=== PATIENT | female | born 1940 | race Caucasian/White ===

== ENCOUNTER 2022-11-01 16:31 | Inpatient (IN) | payer MEDICARE, SELFPAY ==
[2022-11-01 17:00] VITALS: O2SAT 96
[2022-11-01 17:01] VITALS: BP 147/98; PULSE 69; RESP 16; TEMP 36.2; O2SAT 96; BMI 20.2
[2022-11-01 17:42] VITALS: BP 147/98; PULSE 69; RESP 16; TEMP 36.2; O2SAT 96; BMI 20.2
--- NOTE | 2022-11-01 17:42 | PC.NURSE ---
Patient arrived on unit via stretcher transported by EMS from [facility] in [place]. Report had been called at 1150 and bond underwriter received report from GILLIAN Choudhury. Patient required 3 assist from stretcher to bed. Patient and family educated on use of call light, bed and television controls, Rapid response, isolation practices, visiting hours, patient safety and hospital environment. Patient and family voiced understanding.
[2022-11-01] MEDS: DOCUSATE SODIUM 100 MG CAPSULE PO (18:15)
[2022-11-01] MEDS: GABAPENTIN 300 MG CAPSULE PO (18:15)
[2022-11-01 18:30] VITALS: PULSE 67; O2SAT 94
[2022-11-01 20:00] VITALS: PULSE 71; RESP 16; O2SAT 94
[2022-11-01] MEDS: MIRTAZAPINE 7.5 MG TABLET PO (20:23)
[2022-11-01 20:24] VITALS: PULSE 71
[2022-11-01] MEDS: carvediloL 6.25 MG TABLET PO (20:24)
[2022-11-01] MEDS: ROSUVASTATIN 10 MG TABLET 40 MG PO (20:24)
[2022-11-01] MEDS: traZODone HCL 50 MG TABLET 100 MG PO (20:25)
[2022-11-02] VITALS (7 sets, daily range): BP systolic 117–133; BP diastolic 51–79; PULSE 69–73; RESP 16; TEMP 36.6–36.8; O2SAT 91–98
[2022-11-02 05:01] LABS: Basophils Absolute Auto 0.04 K/mm3 (0.00-0.10); Basophils Percent Auto 0.4 % (0.0-1.0); Eosinophils Absolute Auto 0.05 K/mm3 (0.02-0.50); Eosinophils Percent Auto 0.6 % (1.0-6.0); Hematocrit 32.2 % (35.0-42.0); Hemoglobin 9.8 g/dL (11.7-13.8); Immature Granulocyte Absolute 0.02 K/mm3 (0.00-0.00); Immature Granulocyte Percent A 0.2 % (0.0-0.0); Lymphocytes Absolute Auto 1.67 K/mm3 (1.10-4.50); Lymphocytes Percent Auto 18.6 % (18.0-42.0); Mean Corpuscular HGB Conc 30.4 g/dL (32.0-36.0); Mean Corpuscular Hemoglobin 29.9 pg (27.0-31.0); Mean Corpuscular Volume 98.2 fL (78.0-102.0); Mean Platelet Volume 9.6 fl (9.2-11.8); Monocytes Absolute Auto 0.92 K/mm3 (0.10-0.90); Monocytes Percent Auto 10.2 % (2.0-11.0); Neutrophils Absolute Auto 6.3 K/mm3 (1.7-7.2); Platelet Count Result 331 K/mm3 (150-420); Red Blood Count 3.28 M/mm3 (4.20-5.40); Red Cell Distribution Width 13.8 % (11.6-14.4)
[2022-11-02 05:19] LABS: Alanine Aminotransferase 29 U/L (14-59); Albumin Level 1.9 g/dL (3.4-5.0); Alkaline Phosphatase 81 U/L (46-116); Anion Gap 0 mmol/L (8-16); Aspartate Amino Transferase 20 U/L (15-37); Bilirubin,Total 0.3 mg/dL (0.00-1.00); Blood Urea Nitrogen 19 mg/dL (7-18); Calcium 8.6 mg/dL (8.5-10.1); Carbon Dioxide 43 mmol/L (21-32); Chloride 104 mmol/L (98-108); Estimated CRCL calculation 31 ml/min; Estimated Glomerular Filt Rate 48; Glucose 103 mg/dL (70-99); Magnesium 1.9 mg/dL (1.8-2.4); Osmolality Calculated 306 mOsm/kg (285-295); Potassium 3.7 mmol/L (3.5-5.1); Sodium 147 mmol/L (136-145); Total Protein 5.2 g/dL (6.4-8.2)
[2022-11-02 05:20] LABS: Partial Thromboplastin Time 27.1 SEC (23.90-30.70)
[2022-11-02] MEDS: ACIDOPHILUS/BULGARICUS CHEWABLE TABLET 1 TABLET PO (09:00)
[2022-11-02] MEDS: DEXAMETHASONE 2 MG TABLET 6 MG PO (09:01)
[2022-11-02] MEDS: GABAPENTIN 300 MG CAPSULE PO ×3 (09:01→17:00)
[2022-11-02] MEDS: THERAPEUTIC MULTIVITAMINS/MINERALS TAB (*BKC) 1 TABLET PO (09:02)
[2022-11-02] MEDS: FAMOTIDINE 20 MG TABLET 40 MG PO (09:03)
[2022-11-02] MEDS: PANTOPRAZOLE 40 MG TABLET PO (09:03)
[2022-11-02] MEDS: CALCIUM CARBONATE (OSCAL) 500 MG TABLET PO (09:03)
[2022-11-02] MEDS: SERTRALINE HCL 50 MG TABLET PO (09:04)
[2022-11-02] MEDS: carvediloL 6.25 MG TABLET PO ×2 (09:05→20:30)
[2022-11-02] MEDS: CLOPIDOGREL BISULFATE 75 MG TABLET PO (09:05)
[2022-11-02] MEDS: LORATADINE 10 MG TABLET PO (09:06)
--- NOTE | 2022-11-02 10:41 | PM.IMHP ---
H&P: HPI History of Present Illness Date/Time: 11/02/22 10:41 Chief Complaint: Weakness, fall, REhab, AMS Narrative: Gianfranco Barraza is a 2-year-old female with known coronary artery disease status post CABG 1988, with hypertension, breast cancer, dysphagia with need for esophageal dilation [id number] in. Patient had a non-STEMI was admitted to [facility] patient was positive for COVID this year and October. Patient is confusion has continued to improve. Patient is currently being admitted into swing so she is able to improve and get stronger with physical therapy. Patient will be seen by therapy and is medically stable to particapate. Review of Systems Review of Systems: weakness, Post Covid, Post [facility] All systems reviewed & are unremarkable except as noted in HPI and below PMFSH Past Medical History Medical History (Updated 11/12/22 @ 06:16 by Suman Montiel NP) Abdominal pain Bloating COPD (chronic obstructive pulmonary disease) Decreased appetite Dysphagia Epigastric pain GERD (gastroesophageal reflux disease) Irritable bowel syndrome with constipation PVD (peripheral vascular disease) Social History Social History (System 05/11/19 @ 14:18 by Izabella Vaughan) Smoking packs per day: 0.25 Smoking cigarettes per day: 5.0 Years smoked: 30 Smoking pack-years: 7.50 Smoking status: Former smoker Tobacco type: cigarettes Second hand tobacco smoke exposure: Yes Smoking end date: 11/01/88 Alcohol intake: former Substance use: never Substance use type: does not use Lack of Transportation: No Lack of Food: Sometimes True Current Housing: I Have Housing Concerned About Future Housing: No Difficulty Paying Gas/Electric Bills: No Difficulty Paying for Meds: No Currently Unemployed: No Education: Trade/Vocational Certificate Difficulty w/ Childcare or Family Care: No Spiritual care concerns: No Meds Home Medications and Allergies Home Medications Medication Instructions Recorded Confirmed Type Lactobacillus acidophilus 10 mg PO DAILY 10/05/22 11/01/22 History (Acidophilus capsule) calcium carbonate 600 mg calcium 600 mg PO DAILY 10/05/22 11/01/22 History (1,500 mg) tablet (Calcium) clopidogrel 75 mg tablet 75 mg PO DAILY 10/05/22 11/01/22 History gabapentin 300 mg capsule 300 mg PO TID 10/05/22 11/01/22 History trazodone 100 mg tablet 100 mg PO QHS 10/05/22 11/01/22 History albuterol sulfate 90 mcg/actuation 2 puff inhalation QID PRN 11/01/22 11/01/22 History aerosol inhaler (Proventil HFA) Shortness Of Breath Or Wheezing carvedilol 6.25 mg tablet 6.25 mg PO Q12H 11/01/22 11/01/22 History docusate sodium 100 mg capsule 100 mg PO BID 11/01/22 11/01/22 History famotidine 40 mg tablet 40 mg PO DAILY 11/01/22 11/01/22 History fluticasone fur. 200 mcg-umeclid 1 inh inhalation DAILY 11/01/22 11/01/22 History 62.5 mcg-vilant 25 mcg inhalat.powder (Trelegy Ellipta) loratadine 10 mg capsule 10 mg PO DAILY 11/01/22 11/01/22 History melatonin 5 mg tablet 15 mg PO HS PRN Sleep 11/01/22 11/01/22 History mirtazapine 15 mg tablet (Remeron) 7.5 mg PO HS 11/01/22 11/01/22 History multivit with minerals-iron 18 1 tablet PO DAILY 11/01/22 11/01/22 History mg-folic ac 400 mcg-vit K 25 mcg tablet (Adults Multivitamin) nitroglycerin 0.4 mg sublingual 0.4 mg sublingual Q5-15M PRN Angina 11/01/22 11/01/22 History tablet omeprazole 20 mg capsule,delayed 20 mg PO DAILY 11/01/22 11/01/22 History release ondansetron 4 mg disintegrating 4 mg PO Q8H PRN Abdominal 11/01/22 11/01/22 History tablet Discomfort rosuvastatin 40 mg tablet 40 mg PO HS 11/01/22 11/01/22 History sertraline 50 mg tablet 50 mg PO DAILY 11/01/22 11/01/22 History dexamethasone 2 mg tablet 6 mg PO DAILY@0800 #1 tablet 11/05/22 Rx Allergies Allergy/AdvReac Type Severity Reaction Status Date / Time NSAIDS (Non-Steroidal Allergy Unknown Unknown Verified 10/05/22 13:16 Anti-Inflamma Danae
--- NOTE | 2022-11-02 12:42 | PC.NURSE ---
Decreased patient's O2 to 1L via nasal cannula. SPO2 holding at 95% Will continue to monitor.
--- NOTE | 2022-11-02 13:24 | PC.NURSE ---
Patient's SPO2 at 93% on 1 L.
[2022-11-02] MEDS: DOCUSATE SODIUM 100 MG CAPSULE PO (17:00)
--- NOTE | 2022-11-02 17:12 | PC.NURSE ---
Patient stated that prior to hospitalization, patient only wore depends at home when she had loose stools. Community Services Coordinator encouraged patient to call for bedside commode when she feels the urge to use the bathroom and patient has been continent x 4. SPO2 at 91% on 1 L O2 via n/c. Patient ambulates 1 assist walker to bedside commode, chair and back to bed with some noted weakness.
[2022-11-02] MEDS: ROSUVASTATIN 10 MG TABLET 40 MG PO (20:29)
[2022-11-02] MEDS: traZODone HCL 50 MG TABLET 100 MG PO (20:30)
[2022-11-02] MEDS: MIRTAZAPINE 7.5 MG TABLET PO (20:30)
[2022-11-03] VITALS (7 sets, daily range): BP systolic 108–114; BP diastolic 50–64; PULSE 70–75; RESP 14–18; TEMP 36.1–36.8; O2SAT 93–94
--- NOTE | 2022-11-03 02:59 | PC.NURSE ---
On 11/03/22, the INTERPRETER TRANSLATOR, [Natalie Dior ], provided care and completed [facility] documentation on this patient. I have reviewed the INTERPRETER TRANSLATOR's documentation and agree with the findings.
[2022-11-03] MEDS: DEXAMETHASONE 2 MG TABLET 6 MG PO (08:25)
[2022-11-03] MEDS: ACIDOPHILUS/BULGARICUS CHEWABLE TABLET 1 TABLET PO (09:24)
[2022-11-03] MEDS: CALCIUM CARBONATE (OSCAL) 500 MG TABLET PO (09:24)
[2022-11-03] MEDS: SERTRALINE HCL 50 MG TABLET PO (09:25)
[2022-11-03] MEDS: GABAPENTIN 300 MG CAPSULE PO ×3 (09:25→17:13)
[2022-11-03] MEDS: LORATADINE 10 MG TABLET PO (09:25)
[2022-11-03] MEDS: PANTOPRAZOLE 40 MG TABLET PO (09:25)
[2022-11-03] MEDS: FAMOTIDINE 20 MG TABLET 40 MG PO (09:25)
[2022-11-03] MEDS: carvediloL 6.25 MG TABLET PO ×2 (09:26→20:22)
[2022-11-03] MEDS: THERAPEUTIC MULTIVITAMINS/MINERALS TAB (*BKC) 1 TABLET PO (09:26)
[2022-11-03] MEDS: DOCUSATE SODIUM 100 MG CAPSULE PO ×2 (09:27→17:13)
[2022-11-03] MEDS: CLOPIDOGREL BISULFATE 75 MG TABLET PO (09:27)
--- NOTE | 2022-11-03 10:46 | PHAR ---
verified pt.'s home medication Trelegy Ellipta Inhaler 200/62.5/25mcg, 1 puff daily.
[2022-11-03] MEDS: ACETAMINOPHEN 500 MG TABLET 1000 MG PO (11:28)
[2022-11-03] MEDS: ROSUVASTATIN 10 MG TABLET 40 MG PO (20:22)
[2022-11-03] MEDS: traZODone HCL 50 MG TABLET 100 MG PO (20:22)
[2022-11-03] MEDS: MIRTAZAPINE 7.5 MG TABLET PO (20:23)
[2022-11-04] VITALS (7 sets, daily range): BP systolic 126–143; BP diastolic 51–69; PULSE 64–77; RESP 14–16; TEMP 36.2–37.2; O2SAT 92–95
--- NOTE | 2022-11-04 04:33 | PC.NURSE ---
On 11/04/22, the TECHNICAL BUYER, [ Natalie Dior], provided care and completed [facility] documentation on this patient. I have reviewed the TECHNICAL BUYER's documentation and agree with the findings.
[2022-11-04] MEDS: DEXAMETHASONE 2 MG TABLET 6 MG PO (08:40)
[2022-11-04] MEDS: PANTOPRAZOLE 40 MG TABLET PO (09:14)
[2022-11-04] MEDS: FAMOTIDINE 20 MG TABLET 40 MG PO (09:14)
[2022-11-04] MEDS: THERAPEUTIC MULTIVITAMINS/MINERALS TAB (*BKC) 1 TABLET PO (09:14)
[2022-11-04] MEDS: SERTRALINE HCL 50 MG TABLET PO (09:15)
[2022-11-04] MEDS: CALCIUM CARBONATE (OSCAL) 500 MG TABLET PO (09:15)
[2022-11-04] MEDS: GABAPENTIN 300 MG CAPSULE PO ×3 (09:15→17:15)
[2022-11-04] MEDS: DOCUSATE SODIUM 100 MG CAPSULE PO ×2 (09:15→17:15)
[2022-11-04] MEDS: CLOPIDOGREL BISULFATE 75 MG TABLET PO (09:16)
[2022-11-04] MEDS: carvediloL 6.25 MG TABLET PO ×2 (09:16→20:19)
[2022-11-04] MEDS: LORATADINE 10 MG TABLET PO (09:16)
[2022-11-04] MEDS: ACIDOPHILUS/BULGARICUS CHEWABLE TABLET 1 TABLET PO (10:01)
[2022-11-04] MEDS: ENOXAPARIN 40 MG/0.4 ML SYRINGE SUB-Q (12:52)
[2022-11-04] MEDS: ROSUVASTATIN 10 MG TABLET 40 MG PO (20:19)
[2022-11-04] MEDS: MIRTAZAPINE 7.5 MG TABLET PO (20:19)
[2022-11-04] MEDS: traZODone HCL 50 MG TABLET 100 MG PO (20:19)
[2022-11-04] MEDS: ACETAMINOPHEN 500 MG TABLET 1000 MG PO (20:19)
[2022-11-05 07:33] LABS: Basophils Absolute Auto 0.01 K/mm3 (0.00-0.10); Basophils Percent Auto 0.1 % (0.0-1.0); Hematocrit 30.3 % (35.0-42.0); Hemoglobin 9.6 g/dL (11.7-13.8); Immature Granulocyte Absolute 0.03 K/mm3 (0.00-0.00); Immature Granulocyte Percent A 0.3 % (0.0-0.0); Lymphocytes Absolute Auto 1.73 K/mm3 (1.10-4.50); Lymphocytes Percent Auto 19.1 % (18.0-42.0); Mean Corpuscular HGB Conc 31.7 g/dL (32.0-36.0); Mean Corpuscular Hemoglobin 29.3 pg (27.0-31.0); Mean Corpuscular Volume 92.4 fL (78.0-102.0); Monocytes Absolute Auto 0.81 K/mm3 (0.10-0.90); Monocytes Percent Auto 8.9 % (2.0-11.0); Neutrophils Absolute Auto 6.5 K/mm3 (1.7-7.2); Neutrophils Percent Auto 71.6 % (50.0-70.0); Platelet Count Result 313 K/mm3 (150-420); Red Blood Count 3.28 M/mm3 (4.20-5.40); Red Cell Distribution Width 13.9 % (11.6-14.4); White Blood Count 9.1 K/mm3 (4.8-10.8)
[2022-11-05 07:47] LABS: Anion Gap 3 mmol/L (8-16); Blood Urea Nitrogen 22 mg/dL (7-18); Calcium 8.8 mg/dL (8.5-10.1); Carbon Dioxide 37 mmol/L (21-32); Chloride 103 mmol/L (98-108); Estimated CRCL calculation 31 ml/min; Estimated Glomerular Filt Rate 48; Glucose 93 mg/dL (70-99); Iron 75 ug/dL (50-170); Osmolality Calculated 299 mOsm/kg (285-295); Percent Iron Saturation 33 % (12-57); Potassium 3.8 mmol/L (3.5-5.1); Sodium 143 mmol/L (136-145)
[2022-11-05 08:00] VITALS: BP 147/64; PULSE 69; RESP 16; TEMP 36.3; O2SAT 92
[2022-11-05] MEDS: DEXAMETHASONE 2 MG TABLET 6 MG PO (08:45)
[2022-11-05] MEDS: THERAPEUTIC MULTIVITAMINS/MINERALS TAB (*BKC) 1 TABLET PO (09:22)
[2022-11-05] MEDS: ACIDOPHILUS/BULGARICUS CHEWABLE TABLET 1 TABLET PO (09:22)
[2022-11-05] MEDS: DOCUSATE SODIUM 100 MG CAPSULE PO (09:22)
[2022-11-05] MEDS: GABAPENTIN 300 MG CAPSULE PO ×2 (09:22→13:06)
[2022-11-05] MEDS: PANTOPRAZOLE 40 MG TABLET PO (09:22)
[2022-11-05 09:23] VITALS: PULSE 65
[2022-11-05] MEDS: FAMOTIDINE 20 MG TABLET 40 MG PO (09:23)
[2022-11-05] MEDS: CLOPIDOGREL BISULFATE 75 MG TABLET PO (09:23)
[2022-11-05] MEDS: CALCIUM CARBONATE (OSCAL) 500 MG TABLET PO (09:23)
[2022-11-05] MEDS: carvediloL 6.25 MG TABLET PO (09:23)
[2022-11-05] MEDS: LORATADINE 10 MG TABLET PO (09:23)
[2022-11-05] MEDS: SERTRALINE HCL 50 MG TABLET PO (09:23)
--- NOTE | 2022-11-05 12:08 | PM.DS ---
DS: Admitting Diagnosis Discharge Date Tuesday, 11/05 Admitting Diagnosis Fall, COVID DS: Discharge Diagnosis Discharge Diagnosis (1) Fall: Code(s): W19.XXXA - Unspecified fall, initial encounter Status: Acute Assessment and Plan: PT OT ordered with improvement in functioning Home health consults ordered (2) COVID: Code(s): U07.1 - COVID-19 Status: Acute (3) NSTEMI (non-ST elevated myocardial infarction): Code(s): I21.4 - Non-ST elevation (NSTEMI) myocardial infarction Status: Acute Assessment and Plan: ECHO at [facility] with preserved EF and no wall motion abnormalities Possibly type II NSTEMI from infectious state Cardiology at [facility] felt troponin elevation was non-cardiac (4) Pneumonia: Code(s): J18.9 - Pneumonia, unspecified organism Status: Acute Assessment and Plan: Treated with IV antibiotics and completed oral antibiotic course. Dexamethasone for 5 doses. Last dose is going to be 11/06. On room air now, satting appropriately DS: Summary Hospital Course Hospital Course: This is an 82 year old female with a PMH of CAD s/p CABG , HTN, breast cancer, COPD on home o2 1-2 l as needed,TIA, dysphagia with need for esophageal dilation who presented to an OSH ED after being found down at home by family. She was found to be hypoxic and confused. She required transfer to [facility] for concerns for NSTEMI given tropenemia and elevated BNP. She incidentally was also found to be COVID positive. During her stay at [facility] she was treated for pneumonia with IV antibiotics and transitioned to oral agents as well as 5 day course of dexamethasone. She was evaluated by cardiology who felt her high troponins were not cardiac related but likely reactive from infection. Her ECHO was non-concerning. She was then transfered to [facility] for Pt/Ot. 11/05: Medically clinically ready for discharge. Her labs are WNL for her chronic conditions despite a slight elevation in her Cr of 1.08. Chart review shows initial Cr of 1.69 so this is much improved. She is not requiring oxygen, denies SOB, CP, dizziness, headache, is tolerating a diet and denies GI distress such as N/V/D. She is going to d/c home today with home health care services. Status at Discharge Cognitive/behavioral status at discharge: A&Ox4, pleasant Functional status at discharge: uses cane/walker Time Spent with Patient Time attestation: Total time spent providing and/or coordinating discharge services:45 Exam Narrative: General: well appearing, well developed, thin, appears stated age. HEENT: normocephalic, atraumatic. Mucous membranes moist. EOMI, PERRLA, bilateral sclera anicteric, no conjunctival injection. Neck supple without JVD, lymphadenopathy, or bruit. Respiratory: clear to auscultation bilaterally. No rales/rhonic/wheezes. Cardiovascular: Regular rate and rhythm, normal S1-S2 upon auscultation. No murmurs, rubs, or clicks. PMI is nondisplaced, capillary re-fill less than 3 second. Abdomen: Soft, flat, no pulsatile masses, non-distended and non-tender. No rebound, no guarding. No CVA tenderness, no hepatosplenomegaly. Bowel sounds present to all four quadrants. No high pitch or tinkling sounds, resonant to percussion. Extremities: No cyanosis, clubbing, or edema present. Pulses are palpable 2/2. Active ROM to all four extremities. Neuro: Alert and orientated x 4. PERRLA. Cranial nerves 2-12 intact without focal deficit. Skin: Warm, dry, and intact, without rash, erythema, or lesion. Lines: N/a Incisions: N/a Psych: pleasant, cooperative, normal speech, normal affect, no hallucinations, no dysarthria DS: Data Data Completed and Pending Labs on day of discharge: Labs from last 24 hours 11/05/22 07:21 WBC 9.1 RBC 3.28 L Hgb 9.6 L Hct 30.3 L MCV 92.4 MCH 29.3 MCHC 31.7 L RDW 13.9 Plt Count 313 MPV 10.0 Immature Gran % (Auto) 0.3 H Neut % (Auto) 71.6 H Lymph % (A
--- NOTE | 2022-11-05 14:16 | PC.NURSE ---
Patient discharged to home. Left facility via wheelchair and gait belt. Assisted into private vehicle. Spouse present at the time.
--- NOTE | 2022-11-09 10:21 | PC.NURSE ---
Discharge call back complete, daughter report nurses have been in and all is going well, no questions regarding discharge instructions, everything understood
== END 2022-11-05 13:35 | disposition home health service (06) | DRG 947 ==
PROVIDERS: Nurse Practitioner Acute Care; Nurse Practitioner Adult Health; Admitting Provider Internal Medicine; Visit Provider Internal Medicine
DX: R53.1 Weakness (principal); I21.A1 Myocardial infarction type 2; U07.1 COVID-19; J18.9 Pneumonia, unspecified organism; I25.10 Atherosclerotic heart disease of native coronary artery without angina pectoris; I10 Essential (primary) hypertension; I73.9 Peripheral vascular disease, unspecified; J44.9 Chronic obstructive pulmonary disease, unspecified; K21.9 Gastro-esophageal reflux disease without esophagitis; K58.1 Irritable bowel syndrome with constipation; Z95.1 Presence of aortocoronary bypass graft; Z85.3 Personal history of malignant neoplasm of breast; Z87.891 Personal history of nicotine dependence; Z79.02 Long term (current) use of antithrombotics/antiplatelets
CPT/HCPCS: 36415; 80048; 80053; 83540; 83550; 83735; 85025; 85730; 97110; 97161; 97165; 97530; 97535; A9270; J1650; J8540

== ENCOUNTER 2023-04-05 01:37 | Day surgery (SDC) | payer MEDICARE, SELFPAY ==
[2023-03-22 15:45] VITALS: BMI 20.1
--- NOTE | 2023-03-22 16:34 | PC.NURSE ---
Spoke with __PT AND DAUGHTER STACI____ regarding medication __PLAVIX . Pt. verbalizes understanding that the last dose of _PLAVIX___ is to be taken on __03/31/2023____ and the Endoscopist will instruct them when to restart after the procedure.
--- NOTE | 2023-04-01 13:06 | SUR.PREOP ---
Patient called regarding upcoming procedure. Reviewed preop instructions, appointment times, and procedure prep.
[2023-04-05 11:49] VITALS: BP 151/52; PULSE 74; RESP 18; TEMP 36.9; O2SAT 98; BMI 19.7
--- NOTE | 2023-04-05 12:09 | PM.HPGS ---
History of Present Illness History of Present Illness Consent: Risks, benefits, and alternatives have been discussed and questions answered. Patient agrees to proceed with procedure. Chief complaint: Dysphagia Narrative: Kami Fry is a 82 year old female With dysphagia for solid food. Several years ago she apparently had esophageal dilatation on 2 different occasions. She also suffers from chronic acid reflux. She takes omeprazole 20 mg b.i.d. but still has breakthrough symptoms. Review of Systems Review of Systems: All systems reviewed & are unremarkable except as noted in HPI and below PMFSH Past Medical History Medical History Abdominal pain Bloating COPD (chronic obstructive pulmonary disease) Decreased appetite Dysphagia Epigastric pain GERD (gastroesophageal reflux disease) Irritable bowel syndrome with constipation PVD (peripheral vascular disease) Social History Social History Smoking packs per day: 0.5 Smoking cigarettes per day: 10.0 Years smoked: 30 Smoking pack-years: 15.00 Smoking status: Former smoker Tobacco type: cigarettes Second hand tobacco smoke exposure: Yes Smoking end date: 11/01/88 Alcohol intake: current Substance use: never Substance use type: does not use Lack of Transportation: No Lack of Food: Sometimes True Current Housing: I Have Housing Concerned About Future Housing: No Difficulty Paying Gas/Electric Bills: No Difficulty Paying for Meds: No Currently Unemployed: No Education: Trade/Vocational Certificate Difficulty w/ Childcare or Family Care: No Living arrangements: with family Spiritual care concerns: No Meds Home Medications and Allergies Home Medications Medication Instructions Recorded Confirmed Type calcium carbonate 600 mg calcium 600 mg PO HS 10/05/22 03/22/23 History (1,500 mg) tablet (Calcium) clopidogrel 75 mg tablet 75 mg PO DAILY 10/05/22 03/22/23 History gabapentin 300 mg capsule 300 mg PO TID 10/05/22 03/22/23 History trazodone 100 mg tablet 100 mg PO QHS 10/05/22 03/22/23 History albuterol sulfate 90 mcg/actuation 2 puff inhalation QID PRN 11/01/22 03/22/23 History aerosol inhaler (Proventil HFA) Shortness Of Breath Or Wheezing docusate sodium 100 mg capsule 100 mg PO BID 11/01/22 03/22/23 History fluticasone fur. 200 mcg-umeclid 1 inh inhalation DAILY 11/01/22 03/22/23 History 62.5 mcg-vilant 25 mcg inhalat.powder (Trelegy Ellipta) loratadine 10 mg capsule 10 mg PO DAILY 11/01/22 03/22/23 History melatonin 5 mg tablet 15 mg PO HS PRN Sleep 11/01/22 03/22/23 History multivit with minerals-iron 18 1 tablet PO DAILY 11/01/22 03/22/23 History mg-folic ac 400 mcg-vit K 25 mcg tablet (Adults Multivitamin) nitroglycerin 0.4 mg sublingual 0.4 mg sublingual Q5-15M PRN Angina 11/01/22 03/22/23 History tablet omeprazole 20 mg capsule,delayed 20 mg PO BID 11/01/22 03/22/23 History release ondansetron 4 mg disintegrating 4 mg PO Q8H PRN Abdominal 11/01/22 03/22/23 History tablet Discomfort rosuvastatin 40 mg tablet 40 mg PO HS 11/01/22 03/22/23 History sertraline 50 mg tablet 50 mg PO DAILY 11/01/22 03/22/23 History Lactobacillus acidophilus 1 cap PO BID 03/22/23 03/22/23 History (Acidophilus capsule) famotidine 20 mg tablet 20 mg PO BID 03/22/23 03/22/23 History jules root extract 1 cap PO DAILY 03/22/23 03/22/23 History losartan 25 mg tablet 12.5 mg PO DAILY 03/22/23 03/22/23 History mirtazapine 7.5 mg tablet 7.5 mg PO HS 03/22/23 03/22/23 History Allergies Allergy/AdvReac Type Severity Reaction Status Date / Time NSAIDS (Non-Steroidal Allergy Severe Anaphylaxis Verified 03/22/23 15:49 Anti-Inflamma Vital Signs Vital Signs - 24 hr 04/05/23 11:49 Temperature 36.9 C Pulse Rate 74 Respiratory Rate 18 Blood Pressure 151/52 H Pulse Oximetry 98 Oxygen Delive
[2023-04-05] MEDS: LACTATED RINGERS 1,000 ML 150 ML IV CONT (12:16)
--- NOTE | 2023-04-05 12:29 | WPDANESEPPF ---
Anes - Initial Pre Proc Eval Procedure: Operation Date: 04/05/23 13:00 Proposed Procedures p Esophagogastroduodenoscopy - Josafat Eason MD Date/Time: 04/05/23 12:29 Surgeon: Josafat Eason MD Pre Op Diagnosis: Dysphagia Patient Data Age: 82 Gender: F Height: 1.65 m Weight: 53.7 kg Last Vital Signs Temp 98.4 F 04/05/23 11:49 Pulse 74 04/05/23 11:49 Resp 18 04/05/23 11:49 BP 151/52 H 04/05/23 11:49 Pulse Ox 98 04/05/23 11:49 O2 Del Method Room Air 04/05/23 11:49 Allergies Allergy/AdvReac Type Severity Reaction Status Date / Time NSAIDS (Non-Steroidal Allergy Severe Anaphylaxis Verified 03/22/23 15:49 Anti-Inflamma Home Medications Medication Instructions Recorded Confirmed Type calcium carbonate 600 mg calcium 600 mg PO HS 10/05/22 03/22/23 History (1,500 mg) tablet (Calcium) clopidogrel 75 mg tablet 75 mg PO DAILY 10/05/22 03/22/23 History gabapentin 300 mg capsule 300 mg PO TID 10/05/22 03/22/23 History trazodone 100 mg tablet 100 mg PO QHS 10/05/22 03/22/23 History albuterol sulfate 90 mcg/actuation 2 puff inhalation QID PRN 11/01/22 03/22/23 History aerosol inhaler (Proventil HFA) Shortness Of Breath Or Wheezing docusate sodium 100 mg capsule 100 mg PO BID 11/01/22 03/22/23 History fluticasone fur. 200 mcg-umeclid 1 inh inhalation DAILY 11/01/22 03/22/23 History 62.5 mcg-vilant 25 mcg inhalat.powder (Trelegy Ellipta) loratadine 10 mg capsule 10 mg PO DAILY 11/01/22 03/22/23 History melatonin 5 mg tablet 15 mg PO HS PRN Sleep 11/01/22 03/22/23 History multivit with minerals-iron 18 1 tablet PO DAILY 11/01/22 03/22/23 History mg-folic ac 400 mcg-vit K 25 mcg tablet (Adults Multivitamin) nitroglycerin 0.4 mg sublingual 0.4 mg sublingual Q5-15M PRN Angina 11/01/22 03/22/23 History tablet omeprazole 20 mg capsule,delayed 20 mg PO BID 11/01/22 03/22/23 History release ondansetron 4 mg disintegrating 4 mg PO Q8H PRN Abdominal 11/01/22 03/22/23 History tablet Discomfort rosuvastatin 40 mg tablet 40 mg PO HS 11/01/22 03/22/23 History sertraline 50 mg tablet 50 mg PO DAILY 11/01/22 03/22/23 History Lactobacillus acidophilus 1 cap PO BID 03/22/23 03/22/23 History (Acidophilus capsule) famotidine 20 mg tablet 20 mg PO BID 03/22/23 03/22/23 History jules root extract 1 cap PO DAILY 03/22/23 03/22/23 History losartan 25 mg tablet 12.5 mg PO DAILY 03/22/23 03/22/23 History mirtazapine 7.5 mg tablet 7.5 mg PO HS 03/22/23 03/22/23 History Patient hx anesthesia problems: none Family hx anesthesia problems: none Results Review: All pre-operative results and documents have been reviewed as part of the pre-operative evaluation. [facility], [facility] Past Medical History Medical History Abdominal pain Bloating COPD (chronic obstructive pulmonary disease) Decreased appetite Dysphagia Epigastric pain GERD (gastroesophageal reflux disease) Irritable bowel syndrome with constipation PVD (peripheral vascular disease) Social History Social History Smoking packs per day: 0.5 Smoking cigarettes per day: 10.0 Years smoked: 30 Smoking pack-years: 15.00 Smoking status: Former smoker Tobacco type: cigarettes Second hand tobacco smoke exposure: Yes Smoking end date: 11/01/88 Alcohol intake: current Substance use: never Substance use type: does not use Lack of Transportation: No Lack of Food: Sometimes True Current Housing: I Have Housing Concerned About Future Housing: No Difficulty Paying Gas/Electric Bills: No Difficulty Paying for Meds: No Currently Unemployed: No Education: Trade/Vocational Certificate Difficulty w/ Childcare or Family Care: No Living arrangements: with family Spiritual care concerns: No Anes - Eval Final PreProcedure Day of Procedure 04/05/23 12:29 Patient weight: normal Heart: regula
[2023-04-05 13:03] VITALS: BP 141/76; PULSE 68; RESP 18; O2SAT 99
[2023-04-05 13:13] VITALS: BP 142/77; PULSE 64; RESP 18; O2SAT 98
[2023-04-05 13:23] VITALS: BP 150/82; PULSE 65; RESP 18; O2SAT 95
== END 2023-04-05 13:39 | disposition home or self-care (01) ==
PROVIDERS: Visit Provider Internal Medicine Gastroenterology
PROC: 0DJ08ZZ Inspection of Upper Intestinal Tract, Via Natural or Artificial Opening Endoscopic (ICD-10-PCS; CPT 43235; principal; 2023-04-05 13:00)
DX: K22.2 Esophageal obstruction (principal); K29.50 Unspecified chronic gastritis without bleeding; J44.9 Chronic obstructive pulmonary disease, unspecified; Z87.891 Personal history of nicotine dependence
CPT/HCPCS: 43239; 43249; 88305; C1726; J2704; J7120